=== PATIENT | male | born 1955 | race Caucasian/White ===

== ENCOUNTER → 2023-10-28 09:40 | Outpatient (REF) | payer MEDICARE, OTHER, SELFPAY ==
[2023-10-28 10:57] LABS: % Basophils 0.8 % (0-2); % Eosinophils 5.5 % (0-6); % Immature Granulocytes 0.6 % (0-0.5); % Lymphocytes 23.6 % (20.5-51.1); % Monocytes 5.7 % (1.7-9.3); % Neutrophils 63.8 % (42.2-75.2); Absolute Eosinophils 0.3 10^3/uL (0-0.7); Absolute Lymphocytes 1.1 10^3/uL (1.2-3.4); Absolute Monocytes 0.3 10^3/uL (0.1-0.6); Hemoglobin 14.3 g/dL (13.0-18.0); Mean Corp Hgb Conc. 34.9 g/dL (33.0-37.0); Mean Corpuscular Hgb 30.5 pg (27.0-31.0); Mean Corpuscular Volume 87.4 fL (80.0-94.0); Mean Platelet Volume 11.1 fL (7.4-10.4); Nucleated Red Blood Cells % 0 % (-); Platelet Count 155 10^3/uL (130-400); Red Blood Cell Count 4.69 10^6/uL (4.70-6.10); Red Cell Dist. Width 11.9 % (11.5-14.5); White Blood Cell Count 4.7 10^3/uL (4.8-10.8)
== END ==
LOC: RAD 09:40
PROVIDERS: ATTENDING PHYSICIAN Nurse Practitioner Adult Health
DX: R22.0 Localized swelling, mass and lump, head (principal)
CPT/HCPCS: 36415; 76536; 85025

== ENCOUNTER → 2023-11-22 11:11 | Outpatient (REF) | payer MEDICARE, OTHER, SELFPAY | LOC: RAD 11:11 | PROVIDERS: ATTENDING PHYSICIAN Surgery Vascular Surgery; FAMILY PHYSICIAN Internal Medicine | DX: I73.9 Peripheral vascular disease, unspecified (principal) | CPT/HCPCS: 93922; 93925 ==

== ENCOUNTER 2023-12-05 12:57 | Emergency (ER) | payer MEDICARE, OTHER, SELFPAY ==
[2023-12-05 13:13] VITALS: BP 155/80
[2023-12-05 15:40] VITALS: BP 159/77
[2023-12-05 15:44] VITALS: BP 159/77
--- NOTE | 2023-12-05 15:59 | ED.GENMED ---
History of Present Illness
General
Chief Complaint: Facial Problem
Source: patient
Time Seen by Provider: 12/05/23 15:49
History of Present Illness
History of Present Illness:
68yoM with a history of hyperlipidemia presenting with his for evaluation of facial swelling. Patient started noticing bilateral facial swelling, L>R, around 9-10 AM this morning. The swelling has since improved but is still present. He also
reports associated pain with this. He had similar symptoms about 1 month ago and he was seen by his PCP. He was prescribed antibiotics and the swelling gradually resolved over the next several days to a week. He is otherwise asymptomatic and
denies any fevers, chills, dysphagia, dental pain.
Past History
Past History
ED Past Medical History: Hypercholesterolemia
ED Past Surgical History: None
Phy Exam
Physical Exam
Physical Exam:
Large area of swelling overlying L parotid gland with tenderness. There is also moderate amount of swelling to the angle of the R jaw. No fluctuance or erythema. No expressible purulence. Normal phonation. Tolerating oral secretions without
difficulty. No dental abscess appreciated.
General Physical Exam
General Presentation: well appearing and no apparent distress
General age: appears stated age
General Skin: warm and dry
General Habitus: normal
Course
Orders/Labs/Results
Orders:
Orders
12/05/23 16:03
CT Neck With Iv Contrast Urgent
Comment:
Reason For Exam: L>R facial/jaw swelling
12/05/23 16:07
Complete Blood Count/With Diff Urgent
Comprehensive Metabolic Panel Urgent
12/05/23 19:10
Cephalexin Monohydrate [Keflex] 500 mg PO NOW STA
Abnormal Lab Results
12/05/23
16:07
WBC 10.9 H 10^3/uL
(4.8-10.8)
Plt Count 124 L 10^3/uL
(130-400)
MPV 11.4 H fL
(7.4-10.4)
Absolute Neuts (auto) 8.4 H 10^3/uL
(1.4-6.5)
Neutrophils % 77.2 H %
(42.2-75.2)
Lymphocytes % 14.3 L %
(20.5-51.1)
Creatinine 0.6 L mg/dL
(0.7-1.3)
12/05/23 16:07
12/05/23 16:07
Vital Signs
Initial and Last Documented VS:
Initial Vital Signs
Temp Pulse Resp BP Pulse Ox
98.7 F 74 18 155/80 99
12/05/23 13:13 12/05/23 13:13 12/05/23 13:13 12/05/23 13:13 12/05/23 13:13
Last Documented Vital Signs
Temp Pulse Resp BP Pulse Ox
98.7 F 63 16 144/74 100
12/05/23 13:13 12/05/23 15:44 12/05/23 15:44 12/05/23 17:00 12/05/23 17:30
MDM/Problems Addressed
Differential Diagnosis Includes:
68yoM here with L>R facial/jaw swelling that began this morning. Had an episode of these symptoms 1 month ago. No f/c or systemic symptoms. Patient is well-appearing in no acute distress. He is afebrile and hemodynamically stable. There is a
large amount of swelling overlying the left parotid gland on exam. No expressible purulence. Neck otherwise supple and airway intact. Differential diagnosis includes but is not limited to: Sialoadenitis, sialolithiasis, dental infection
Initial ED plan: Check CBC, CMP, and CT neck with contrast.
*Critical Care Note
Total Time (30-74mins, 75-104mins- exclusive of procedures): Not Applicable
Update Note
Update Note:
White count is minimally elevated at 10.9. Remainder of labs unremarkable. CT neck shows severe acute L parotid sialoadenitis without sialolithiasis. No indication for admission. Will cover with Keflex for completeness. Supportive care discussed
including hydration, warm compresses, massage, and sour candies. Advise follow-up with ENT and ED return precautions discussed. Patient discharged in stable condition.
ED Attending Note
-
Portions of this chart may have been created with voice recognition software.� Occasional wrong word or��sound alike� substitutions may have occurred due to the inherent limitations of voice recognition software.
Discharge Plan
Departure
Patient Disposition: Home (Routine Discharge)
Date of Disposition: 12/05/23
Time of Disposition: 19:09
Patient with high blood pressure during this ER visit?: No
Discharge Problem:
Sialadenitis
Instructions: Parotitis
Prescriptions:
New
cephalexin 500 mg capsule
500 mg PO QID Qty: 27 0RF
No Action
aspirin 81 MG tablet,delayed release (DR/EC)
81 mg PO QPM
rosuvastatin [Crestor] 10 MG tablet
10 mg PO QPM
Patient Comments:
patient unsure of dose
omega-3 fatty acids Capsule
1,000 mg PO QPM
clopidogrel 75 mg Tablet
75 mg PO DAILY Qty: 90 0RF
Referrals:
Ermias Murphy DO [Family Provider] -
Jonah Abebe MD [Active] -
Activity Restrictions/Additional Instructions:
Take antibiotics as prescribed. Massage area of swelling, use warm compresses, drink plenty of fluids, and eat sour candies to help with swelling.
Please follow-up with the ENT specialist. Return to the ER with any worsening symptoms, fevers, chills.
Interventions
Interventions:
*Risk Screen - Suicide Last Done: 12/05/23 13:13
*General Assessment Last Done: 12/05/23 13:13
*Neglect/Abuse Screening Last Done: 12/05/23 13:13
ED- Fall Risk Assessment Last Done: 12/05/23 15:44
*ED COVID-19 Vaccine History Last Done: 12/05/23 15:44
ED- Neurological Assessment Last Done: 12/05/23 15:44
ED-Skin Assessment Last Done: 12/05/23 15:44
Discharge Date and Time
Print Language: MARTINIQUAIS
[2023-12-05 16:00] VITALS: BP 155/75
[2023-12-05 16:21] LABS: % Basophils 0.5 % (0-2); % Eosinophils 2.6 % (0-6); % Immature Granulocytes 0.3 % (0-0.5); % Lymphocytes 14.3 % (20.5-51.1); % Monocytes 5.1 % (1.7-9.3); % Neutrophils 77.2 % (42.2-75.2); Absolute Basophils 0.1 10^3/uL (0-0.2); Absolute Eosinophils 0.3 10^3/uL (0-0.7); Absolute Lymphocytes 1.6 10^3/uL (1.2-3.4); Absolute Monocytes 0.6 10^3/uL (0.1-0.6); Absolute Neutrophils 8.4 10^3/uL (1.4-6.5); Hemoglobin 14.9 g/dL (13.0-18.0); Mean Corp Hgb Conc. 33.9 g/dL (33.0-37.0); Mean Corpuscular Hgb 30.3 pg (27.0-31.0); Mean Corpuscular Volume 89.4 fL (80.0-94.0); Mean Platelet Volume 11.4 fL (7.4-10.4); Nucleated Red Blood Cells % 0 % (-); Platelet Count 124 10^3/uL (130-400); Red Blood Cell Count 4.92 10^6/uL (4.70-6.10); Red Cell Dist. Width 12.7 % (11.5-14.5); White Blood Cell Count 10.9 10^3/uL (4.8-10.8)
[2023-12-05 16:41] LABS: ALT (SGPT) 28 U/L (0-50); AST (SGOT) 31 U/L (17-59); Albumin 4.8 g/dl (3.5-5.0); Alkaline Phosphatase 66 U/L (38-126); Blood Urea Nitrogen 13 mg/dl (9-20); Calcium 9.6 mg/dl (8.4-10.2); Carbon Dioxide 24 mmol/L (22-30); Chloride 105 mmol/L (98-107); Glucose 97 mg/dl (70-99); Potassium 4.2 mmol/L (3.5-5.1); Sodium 138 mmol/L (135-145); Total Bilirubin 0.9 mg/dl (0.2-1.3); eGFR > 60.00
[2023-12-05 17:00] VITALS: BP 144/74
[2023-12-05] MEDS: KEFLEX 500 MG PO (19:29)
== END 2023-12-05 19:47 | disposition home or self-care (01) ==
LOC: EMR 12:57
PROVIDERS: Physician Assistant; EMERGENCY PHYSICIAN Student in an Organized Health Care Education/Training Program; FAMILY PHYSICIAN Internal Medicine
DX: K11.21 Acute sialoadenitis (principal); E78.00 Pure hypercholesterolemia, unspecified
CPT/HCPCS: 99284; 70491; 80053; 85025; Q9967

== ENCOUNTER → 2024-06-13 13:59 | Outpatient (REF) | payer MEDICARE, OTHER, SELFPAY | LOC: RAD 13:59 | PROVIDERS: ATTENDING PHYSICIAN Surgery Vascular Surgery; FAMILY PHYSICIAN Internal Medicine | DX: I73.9 Peripheral vascular disease, unspecified (principal) | CPT/HCPCS: 93922; 93925 ==

== ENCOUNTER → 2024-12-24 09:58 | Outpatient (REF) | payer MEDICARE, OTHER, SELFPAY | LOC: RCS 09:58 | PROVIDERS: ATTENDING PHYSICIAN Nurse Practitioner Family | DX: R20.0 Anesthesia of skin (principal); R00.2 Palpitations; R07.89 Other chest pain; I73.9 Peripheral vascular disease, unspecified; E78.00 Pure hypercholesterolemia, unspecified | CPT/HCPCS: 93017 ==

== ENCOUNTER → 2025-01-02 07:37 | Outpatient (REF) | payer MEDICARE, OTHER, SELFPAY | LOC: EMG 07:37 | PROVIDERS: ATTENDING PHYSICIAN Nurse Practitioner Family | DX: R20.0 Anesthesia of skin (principal); R00.2 Palpitations; R07.89 Other chest pain; I73.9 Peripheral vascular disease, unspecified; E78.00 Pure hypercholesterolemia, unspecified; G56.02 Carpal tunnel syndrome, left upper limb | CPT/HCPCS: 93225; 93226; 93306; 95886; 95909 ==

== ENCOUNTER → 2025-02-12 08:39 | Outpatient (REF) | payer MEDICARE, OTHER, SELFPAY | LOC: HWRCS 08:39 | PROVIDERS: ATTENDING PHYSICIAN Internal Medicine Cardiovascular Disease; FAMILY PHYSICIAN Internal Medicine | DX: I73.9 Peripheral vascular disease, unspecified (principal); R94.39 Abnormal result of other cardiovascular function study; R07.9 Chest pain, unspecified | CPT/HCPCS: 78452; 93017; A9500; J2785 ==